=== PATIENT | male | born 1950 | race Asian ===

== ENCOUNTER 2017-06-04 11:09 | Day surgery (SDC) | payer BC, MEDICARE ==
[2017-06-03 14:19] VITALS: BMI 29.0
--- NOTE | 2017-06-04 15:31 | MRI ---
MRI PELVIS WITH AND WITHOUT IV CONTRAST: (PROSTATE) Date: 06/04/17 HISTORY: 67-year-old male with elevated PSA, which has risen further after prior biopsy. FINDINGS: The prostate gland measures 5.5 (trans) x 4.3 (AP) x 5.1 (CC) cm with a prostatic volume of 63 mL. There is a 12.0 mm focal area of decreased T2 signal in the transition zone of the right mid prostate gland with early enhancement and subsequent early washout on postcontrast images at the 7-8 o'clock position. Remainder of the prostate gland demonstrates changes of BPH. No capsular extension or invol vement of the neurovascular bundles or seminal vesicles are seen. No lymphadenopathy is seen. The bony structures are unremarkable. IMPRESSION: PI-RADS 4 - High (Clinical significant cancer is likely to be present.) This study was interpreted in consultation with Dr. Taj Kasper, who concurs. POS: OFF
== END 2017-06-04 15:30 | disposition home or self-care (01) ==
LOC: SDC/OP 11:09
PROVIDERS: ATTEND Urology
DX: N40.0 Benign prostatic hyperplasia without lower urinary tract symptoms (principal); R97.20 Elevated prostate specific antigen [PSA]
CPT/HCPCS: 72197

== ENCOUNTER 2017-07-30 18:46 | Emergency (ER) | payer BC, MEDICARE ==
[2017-07-30] MEDS ORDERED: Aspirin 325 MG TAB ONE (19:09)
[2017-07-30 19:17] LABS: #Basophils 0.1 thou/uL (0.0-0.2); #Eosinphils 0.4 thou/uL (0.0-0.7); #Lymphocytes 3.1 thou/uL (1.20-3.40); #Monocytes 0.6 thou/uL (0.11-0.59); #Neutrophils 5.6 thou/uL (1.40-6.50); %Basophils 0.6 % (0.0-1.0); %Eosinophils 4.1 % (0.0-10.0); %Lymphocytes 31.9 % (21.0-51.0); %Neutrophils 57.4 % (42.0-75.0); Hemoglobin 15.5 g/dL (14.0-18.0); Mean Corpuscular Hemoglobin 32.3 pg (27.0-31.0); Mean Corpuscular Volume 92.4 fl (80.0-94.0); Platelet Count 243 thou/uL (130-400); RBC Distribution Width 11.6 % (11.5-14.5); Red Blood Cell (RBC) Count 4.78 mill/uL (4.70-6.10); White Blood Cell (WBC) Count 9.8 thou/uL (4.8-10.8)
[2017-07-30 19:28] LABS: ALT (SGPT) 68 U/L (8-55); AST (SGOT) 53 U/L (5-34); Albumin 4.3 g/dL (3.4-4.8); Alkaline Phosphatase 83 U/L (40-150); Anion Gap 15 mmol/L (10-20); BUN (Urea Nitrogen) 18 mg/dL (8.4-25.7); Bilirubin, Total 0.9 mg/dL (0.2-1.2); Calc. Creatinine Clearance 0 mL/min (70-130); Calcium 9.7 mg/dL (7.8-10.44); Carbon Dioxide 24 mmol/L (23-31); Chloride 100 mmol/L (98-107); Estimated GFR-MDRD 62; Globulin 3.9 g/dL (2.4-3.5); Glucose 338 mg/dL (80-115); Potassium 4.4 mmol/L (3.5-5.1); Protein, Total 8.2 g/dL (5.8-8.1); Sodium 135 mmol/L (136-145)
[2017-07-30 19:32] LABS: CKMB 2.5 ng/mL (0-6.6); Troponin I Less than 0.010 ng/mL (< 0.028)
--- NOTE | 2017-07-30 20:16 | RAD ---
PORTABLE CHEST ONE VIEW 07/30/17 at 7:36 p.m. HISTORY: 67-year-old male with chest pain. FINDINGS: The heart size is normal. The lungs are well expanded without confluent areas of consolidation, pneum othorax or pleural effusions. There are degenerative changes in the acromioclavicular joints. IMPRESSION: No radiographic evidence of acute cardiopulmonary process. POS: [facility]
[2017-07-30 22:36] LABS: Troponin I Less than 0.010 ng/mL (< 0.028)
== END 2017-07-30 22:47 | disposition home or self-care (01) ==
LOC: ERS 18:46
DX: R07.2 Precordial pain (principal); E11.9 Type 2 diabetes mellitus without complications; Z79.84 Long term (current) use of oral hypoglycemic drugs; Z79.899 Other long term (current) drug therapy
CPT/HCPCS: 36415; 71045; 80053; 82553; 84484; 85025; 93005

== ENCOUNTER 2017-09-09 15:36 | Outpatient (CLI) | payer BC, MEDICARE ==
[2017-09-09 16:36] LABS: Hemoglobin 15.3 g/dL (14.0-18.0); Mean Corpuscular HGB CONC 34.8 g/dL (32.0-36.0); Mean Corpuscular Hemoglobin 32.8 pg (27.0-31.0); Mean Corpuscular Volume 94.2 fl (80.0-94.0); Platelet Count 232 thou/uL (130-400); RBC Distribution Width 11.8 % (11.5-14.5); Red Blood Cell (RBC) Count 4.67 mill/uL (4.70-6.10); White Blood Cell (WBC) Count 8.4 thou/uL (4.8-10.8)
[2017-09-09 16:43] LABS: INR-International Normal Ratio 1.1
[2017-09-09 16:44] LABS: PTT 31.6 SEC (22.9-36.1)
[2017-09-09 16:58] LABS: ALT (SGPT) 63 U/L (8-55); AST (SGOT) 45 U/L (5-34); Albumin 4.6 g/dL (3.4-4.8); Alkaline Phosphatase 73 U/L (40-150); Anion Gap 16 mmol/L (10-20); BUN (Urea Nitrogen) 17 mg/dL (8.4-25.7); Bilirubin, Total 0.9 mg/dL (0.2-1.2); Calc. Creatinine Clearance 0 mL/min (70-130); Carbon Dioxide 24 mmol/L (23-31); Chloride 104 mmol/L (98-107); Estimated GFR-MDRD Greater than 90; Globulin 3.4 g/dL (2.4-3.5); Glucose 88 mg/dL (80-115); Potassium 3.9 mmol/L (3.5-5.1); Sodium 140 mmol/L (136-145)
== END 2017-09-09 15:37 | disposition home or self-care (01) ==
LOC: LABBT 15:36
PROVIDERS: ATTEND Internal Medicine Cardiovascular Disease
DX: Z01.818 Encounter for other preprocedural examination (principal); R94.30 Abnormal result of cardiovascular function study, unspecified
CPT/HCPCS: 80053; 85027; 85610; 85730; 93005; 93010

== ENCOUNTER 2017-09-10 10:08 | Day surgery (SDC) | payer BC, MEDICARE ==
[2017-09-09 08:28] VITALS: BMI 29.2
[2017-09-10] MEDS ORDERED: Nitroglycerin 100MG/250ML BOT 250 ML ONE (11:34)
[2017-09-10] MEDS ORDERED: Heparin 10,000 UNITS/1 ML VIAL ONE (11:34)
[2017-09-10] MEDS ORDERED: Lidocaine 1% (PF) 30 ML VIAL ONE (11:34)
[2017-09-10] MEDS ORDERED: Verapamil 5 MG/2 ML VIAL ONE (11:34)
[2017-09-10 11:53] LABS: Cardiac Risk 4.7 (Less than 4.5)
[2017-09-10] MEDS ORDERED: Midazolam HCl 2 mg/2 ml Vial ONE (12:15)
[2017-09-10] MEDS ORDERED: Fentanyl 100 MCG/2 ML VIAL ONE (12:15)
[2017-09-10] MEDS ORDERED: Iopamidol 370 76% 100 ML VIAL ONE (15:55)
== END 2017-09-10 15:16 | disposition home or self-care (01) ==
LOC: CCL 10:08
PROVIDERS: ATTEND Internal Medicine Cardiovascular Disease
PROC: B2111ZZ Fluoroscopy of Multiple Coronary Arteries using Low Osmolar Contrast (ICD-10-PCS; principal; 2017-09-10)
PROC: 4A023N7 Measurement of Cardiac Sampling and Pressure, Left Heart, Percutaneous Approach (ICD-10-PCS; principal; 2017-09-10)
DX: I25.10 Atherosclerotic heart disease of native coronary artery without angina pectoris (principal); E11.9 Type 2 diabetes mellitus without complications; Z79.84 Long term (current) use of oral hypoglycemic drugs; Z79.82 Long term (current) use of aspirin; Z79.899 Other long term (current) drug therapy
CPT/HCPCS: 36416; 80061; 93458; 99153; C1769; J1644; J2001; J2250; J3010

== ENCOUNTER 2017-09-24 20:30 | Outpatient (CLI) | payer BC, MEDICARE | END 2017-09-24 20:31 | disposition home or self-care (01) | LOC: SLEEPLAB 20:30 | PROVIDERS: ATTEND Urology | DX: R94.39 Abnormal result of other cardiovascular function study (principal); I10 Essential (primary) hypertension; E11.9 Type 2 diabetes mellitus without complications; R06.83 Snoring; G47.10 Hypersomnia, unspecified | CPT/HCPCS: 95810 ==

== ENCOUNTER 2017-11-01 10:03 | Outpatient (CLI) | payer BC, MEDICARE ==
[2017-11-01 11:09] LABS: Hemoglobin 14.4 g/dL (14.0-18.0); Mean Corpuscular HGB CONC 34.8 g/dL (32.0-36.0); Mean Corpuscular Hemoglobin 32.5 pg (27.0-31.0); Mean Corpuscular Volume 93.4 fL (78.0-98.0); Mean Platelet Volume 7.3 fL (7.4-10.4); Platelet Count 239 thou/uL (130-400); RBC Distribution Width 11.9 % (11.5-14.5); Red Blood Cell (RBC) Count 4.43 mill/uL (4.70-6.10); White Blood Cell (WBC) Count 7.5 thou/uL (4.8-10.8)
[2017-11-01 11:21] LABS: INR-International Normal Ratio 1.1; Prothrombin Time 14.4 SEC (12.0-14.7)
[2017-11-01 11:22] LABS: PTT 31.8 SEC (22.9-36.1)
[2017-11-01 11:55] LABS: Anion Gap 15 mmol/L (10-20); BUN (Urea Nitrogen) 11 mg/dL (8.4-25.7); Calc. Creatinine Clearance 0 mL/min (70-130); Calcium 9.7 mg/dL (7.8-10.44); Carbon Dioxide 21 mmol/L (23-31); Chloride 107 mmol/L (98-107); Estimated GFR-MDRD Greater than 90; Glucose 130 mg/dL (80-115); Sodium 139 mmol/L (136-145)
[2017-11-01 11:56] LABS: Bilirubin Negative (Negative); Blood, Urine Small (Negative); Clarity CLEAR (Clear); Glucose, Urine (Dipstick) 500 mg/dL (Negative); Leukocyte Negative (Negative); Nitrite Negative (Negative); Protein, Urine (Dipstick) Negative (Neg-Trace); Specific Gravity, Urine 1.025 (1.002-1.036); pH, Urine 5.5 (5.0-9.0)
[2017-11-01 11:59] LABS: Bacteria/HPF None Seen HPF (None Seen); Hyaline Casts/LPF 0-3 HYALINE CAST LPF (0-3 Hyaline); Pathc Cast-AUWi Flag 0.29 (0-2.49); Squamous Epithelial None Seen HPF (0-3)
--- NOTE | 2017-11-01 22:39 | EKG ---
Test Reason : Blood Pressure : / mmHG Vent. Rate : 057 BPM Atrial Rate : 057 BPM P-R Int : 166 ms QRS Dur : 088 ms QT Int : 424 ms P-R-T Axes : 060 -02 008 degrees QTc Int : 412 ms Sinus bradycardia Minimal voltage criteria for LVH, may be normal variant Borderline ECG When compared with ECG of 09-SEP-2017 16:05, (Unconfirmed) No significant change was found Confirmed by Dulce GREY ([id number]) on 11/01/2017 10:38:41 PM Referred By: SOBEIDA Confirmed By:Dulce GREY
== END 2017-11-01 10:04 | disposition home or self-care (01) ==
LOC: LABBT 10:03
PROVIDERS: ATTEND Urology
DX: Z01.818 Encounter for other preprocedural examination (principal); N40.1 Benign prostatic hyperplasia with lower urinary tract symptoms
CPT/HCPCS: 80048; 81001; 85027; 85610; 85730; 86850; 86900; 86901; 87086; 93005; 93010

== ENCOUNTER 2017-11-04 10:00 | Observation (INO) | payer BC, MEDICARE ==
[2017-11-01 10:18] VITALS: BMI 29.2
[2017-11-04] MEDS ORDERED: Levofloxacin 500 mg/D5W 100 ml Premix Bag ONE (11:07)
[2017-11-04] MEDS ORDERED: Ondansetron HCl/PF 4 MG/2 ML Vial ONE (12:52)
[2017-11-04] MEDS ORDERED: Lidocaine 1% PF 5 ML VIAL ONE (12:52)
[2017-11-04] MEDS ORDERED: Dexamethasone 20 MG/5 ML VIAL ONE (12:52)
[2017-11-04] MEDS ORDERED: PHENYLEPHRINE-NS 100 MCG/ML 10 ML SYRINGE ONE (12:52)
[2017-11-04] MEDS ORDERED: PROPOFOL 200 MG/20 ML VIAL ONE (12:52)
[2017-11-04] MEDS ORDERED: Fentanyl 100 MCG/2 ML VIAL ONE ×2 (13:20→16:09)
[2017-11-04] MEDS ORDERED: B & O ONE (15:21)
[2017-11-04] MEDS ORDERED: diphenhydrAMINE 25 MG CAP PO PRN (15:24)
[2017-11-04] MEDS ORDERED: Bisacodyl 10 MG SUPP PR PRN (15:24)
[2017-11-04] MEDS ORDERED: Morphine 4 MG/ML VIAL SLOW IVP PRN (15:24)
[2017-11-04] MEDS ORDERED: Oxybutynin 5 MG TAB PO PRN (15:24)
[2017-11-04] MEDS ORDERED: hydrALAZINE 20 MG/ML VIAL SLOW IVP PRN (15:24)
[2017-11-04] MEDS ORDERED: Acetaminophen 500 MG TAB PO PRN (15:24)
[2017-11-04] MEDS ORDERED: Dextrose 50% Abboject 50 ML SYRINGE SLOW IVP PRN (15:24)
[2017-11-04] MEDS ORDERED: Dextrose 5% in Water 1,000 ML IV PRN (15:24)
[2017-11-04] MEDS ORDERED: Mag-Al 1200 mg/1200 mg/30 ML UDCUP PO PRN (15:24)
[2017-11-04] MEDS ORDERED: Ondansetron HCl/PF 4 MG/2 ML Vial IVP PRN (15:24)
[2017-11-04] MEDS ORDERED: Hyoscyamine Sulfate SL 0.125 mg Tablet SL PRN (15:24)
[2017-11-04] MEDS ORDERED: HumaLOG 300 UNITS/3 ML VIAL SC PRN (15:24)
[2017-11-04] MEDS ORDERED: traMADol HCl 50 MG TAB PO PRN (15:27)
[2017-11-04] MEDS ORDERED: Nitroglycerin 0.4 MG TAB (25 Tab Bottle) SL PRN (15:39)
[2017-11-04] MEDS ORDERED: Midazolam HCl 2 mg/2 ml Vial ONE (15:45)
[2017-11-04] MEDS ORDERED: HYDROcodone/Acetaminophen 7.5/325 mg Tablet PO PRN ×2 (18:37)
[2017-11-04] MEDS ORDERED: B & O 30 MG SUPP PR PRN (18:37)
[2017-11-04] MEDS ORDERED: B & O PR PRN (18:52)
[2017-11-04] MEDS: Docusate 100 MG CAP PO SCH (20:53)
[2017-11-04] MEDS: metFORMIN 500 MG TAB PO SCH (20:53)
[2017-11-04] MEDS: Glimepiride 4 MG TAB PO SCH (20:53)
[2017-11-04] MEDS ORDERED: Atorvastatin Calcium 20 MG TAB PO SCH (21:00)
[2017-11-05 04:45] LABS: #Basophils 0.1 thou/uL (0.0-0.2); #Lymphocytes 1.3 thou/uL (1.20-3.40); #Monocytes 0.5 thou/uL (0.11-0.59); #Neutrophils 9.6 thou/uL (1.40-6.50); %Basophils 0.4 % (0.0-1.0); %Eosinophils 0.1 % (0.0-10.0); %Lymphocytes 11.1 % (21.0-51.0); %Monocytes 4.6 % (0.0-10.0); %Neutrophils 83.8 % (42.0-75.0); Hemoglobin 14.2 g/dL (14.0-18.0); Mean Corpuscular Volume 94.3 fL (78.0-98.0); Mean Platelet Volume 7.8 fL (7.4-10.4); Platelet Count 210 thou/uL (130-400); RBC Distribution Width 11.5 % (11.5-14.5); Red Blood Cell (RBC) Count 4.29 mill/uL (4.70-6.10); White Blood Cell (WBC) Count 11.4 thou/uL (4.8-10.8)
[2017-11-05 05:04] LABS: Anion Gap 17 mmol/L (10-20); BUN (Urea Nitrogen) 14 mg/dL (8.4-25.7); Calc. Creatinine Clearance 80 mL/min (70-130); Calcium 8.7 mg/dL (7.8-10.44); Carbon Dioxide 19 mmol/L (23-31); Chloride 102 mmol/L (98-107); Estimated GFR-MDRD 67; Glucose 350 mg/dL (80-115); Potassium 4.3 mmol/L (3.5-5.1); Sodium 134 mmol/L (136-145)
[2017-11-05] MEDS: metFORMIN 500 MG TAB PO SCH (09:19)
[2017-11-05] MEDS: Docusate 100 MG CAP PO SCH (09:19)
[2017-11-05] MEDS: Glimepiride 4 MG TAB PO SCH (09:19)
[2017-11-05 11:52] VITALS: TEMP 97.7
--- NOTE | 2017-11-05 14:49 | PRG ---
DATE OF SERVICE: 11/05/2017 SUBJECTIVE: The patient states he is doing quite well. He had a lot of bladder spasms last night re quiring pain medication and antispasmodics. He states he was feeling better this morning. His gadiel ter was removed as his CBI was turned off in the a.m. and he was not noted to have overly significant hematuria. He denies any chest pain, shortness of breath or other problems otherwise. OBJECTIVE: VITAL SIGNS: Temperature 97.7, pulse 67, respirations 14, blood pressure 122/71, saturation 95% on r oom air. GENERAL: No apparent distress, communicative and alert. CARDIOVASCULAR: Regular rate and rhythm. ABDOMEN: Soft, nontender, nondistended. Positive bowel sounds. EXTREMITIES: No clubbing, cyanosis or edema. LABORATORY DATA: A full set of labs in the [facility] system, which I have reviewed. Of note, the pat ient's white count is 11.4, hemoglobin 14.2, creatinine is 1.1 with a blood sugar of 350. ASSESSMENT AND PLAN: A 67-year-old male with diabetes and benign prostatic hypertrophy with o bstruction, status post transurethral resection of the prostate postoperative day #1. He has undergo ne his catheter removal and is waiting void trial. We will ensure that he is able to adequately empt y his bladder properly. Due to the amount of antispasmodics, if he does have difficulty emptying his bladder, we will replace the catheter and send him home with the catheter. If he is able to void no rmally, then he can go home without a catheter. We will plan his follow up in approximately 2 weeks for a postop check. I have gone over his discharge instructions with him as well as his medications to take at home and he is understanding of all of them. The nurse will notify me regarding his voidi ng status and the catheter status will depend on how he voids.
[2017-11-05 15:48] VITALS: BP 124/69
--- NOTE | 2017-11-05 16:09 | OP ---
DATE OF PROCEDURE: 11/05/2017 SERVICE: Urology. SURGEON: Iggy Monroy M.D. PREOPERATIVE DIAGNOSIS: Benign prostatic hypertrophy with urinary obstruction. POSTOPERATIVE DIAGNOSIS: Benign prostatic hypertrophy with urinary obstruction. PROCEDURE PERFORMED: Transurethral resection of the prostate. INDICATIONS FOR PROCEDURE: Mr. Solis is a 67-year-old [place] male who has a long history of urinar y difficulties including overactive bladder, urgency, frequency, and weak stream. He has undergone a cystoscopy which demonstrated an obstructive median lobe. I have discussed TURP with him to allevia te the obstruction which may help with the overactive bladder symptoms. The patient has understood t he risks and benefits of surgery and has agreed to proceed forward. DESCRIPTION OF PROCEDURE: After identification of armband and verification of consent, the patient w as brought back to the operating room where he underwent general anesthesia with LMA. He was then pl aced in dorsal lithotomy position and prepped and draped in usual sterile fashion. After appropriate timeout, a lubricated 24-Israeli resectoscope sheath was placed through the urethra with ease up to t he bladder. The visual obturator was then removed and switched out for the bipolar gyrus prostate lo op. Both ureters were identified far away from the bladder neck. I did not think that needed markin g as they were well away. Resection was started with the median lobe and resected completely. The p rostate was then circumferentially resected from the bladder neck to the verumontanum until we were c lose, but not to the capsule. Relaxing incisions were done at 5 and 7 o'clock to further open up the bladder neck and the intervening tissue removed. Upon completion, the prostate chips were evacuated using [facility] evacuator until there were no chips remaining. Meticulous hemostasis was performed thro ughout the prostatic fossa to ensure all bleeding had stopped. Once there was good hemostasis, the p rostate appeared wide open. The resectoscope was removed and a 22-Israeli three-way Schwartz catheter wa s inserted with ease into the bladder with 30 mL of sterile water into the balloon. CBI was initiate d and the catheter affixed with a StatLock to the patient's leg. He was then taken out of lithotomy had a B&O suppository inserted into his rectum. He was awakened and taken to PACU for recovery in st able condition. COMPLICATIONS: None. ESTIMATED BLOOD LOSS: Minimal. RETAINED TUBES AND DRAINS: A 22-Israeli 3-way Schwartz catheter on CBI. SPECIMENS: Prostate chips. DISPOSITION: The patient will be kept in observation in the hospital for CBI and monitoring. Raad irving plan for a void trial tomorrow and discharge home pending results of the void trial.
== END 2017-11-05 16:15 | disposition home or self-care (01) ==
LOC: SDC 10:00 → SJJU 15:24
PROVIDERS: ADMIT Urology; ATTEND Urology
PROC: 0VT08ZZ Resection of Prostate, Via Natural or Artificial Opening Endoscopic (ICD-10-PCS; principal; 2017-11-05)
DX: N40.1 Benign prostatic hyperplasia with lower urinary tract symptoms (principal); N13.8 Other obstructive and reflux uropathy; R35.0 Frequency of micturition; R39.15 Urgency of urination; R39.12 Poor urinary stream; R97.20 Elevated prostate specific antigen [PSA]; E11.9 Type 2 diabetes mellitus without complications; Z79.82 Long term (current) use of aspirin; Z79.84 Long term (current) use of oral hypoglycemic drugs; Z79.899 Other long term (current) drug therapy
CPT/HCPCS: 36415; 36416; 80048; 85025; 88305; 96365; 96374; 96375; 96376; G0378; J1100; J1956; J2001; J2250; J2270; J2405; J2704; J3010

== ENCOUNTER 2021-05-15 09:55 | Outpatient (CLI) | payer BC, MEDICARE | END 2021-05-15 09:56 | disposition home or self-care (01) | LOC: BICRAD 09:55 | PROVIDERS: ATTEND Family Medicine | DX: M47.22 Other spondylosis with radiculopathy, cervical region (principal); R05.9 Cough, unspecified | CPT/HCPCS: 71046; 72040 ==

== ENCOUNTER 2021-09-11 15:53 | Outpatient (CLI) | payer BC, MEDICARE | END 2021-09-11 15:54 | disposition home or self-care (01) | LOC: LABBT 15:53 | PROVIDERS: ATTEND Family Medicine | DX: Z20.822 Contact with and (suspected) exposure to COVID-19 (principal) | CPT/HCPCS: U0003; U0005 ==

== ENCOUNTER 2021-09-15 09:43 | Day surgery (SDC) | payer BC, MEDICARE ==
[2021-09-11 14:20] VITALS: BMI 27.7
[2021-09-15] MEDS ORDERED: PROPOFOL 200 MG/20 ML VIAL ONE (11:00)
[2021-09-15] MEDS ORDERED: Ondansetron PF 4 MG/2 ML Vial ONE (11:00)
[2021-09-15] MEDS ORDERED: Dexamethasone 20 MG/5 ML VIAL ONE (11:00)
[2021-09-15] MEDS ORDERED: Lidocaine 1% PF 5 ML VIAL ONE (11:00)
== END 2021-09-15 12:50 | disposition home or self-care (01) ==
LOC: MRI 09:43
PROVIDERS: ATTEND Family Medicine
DX: H54.61 Unqualified visual loss, right eye, normal vision left eye (principal)
CPT/HCPCS: 70551; J1100; J2405; J2704

== ENCOUNTER 2023-04-14 09:54 | Outpatient (CLI) | payer BC, MEDICARE ==
[2023-04-14 10:58] LABS: Bilirubin Neg (Negative); Blood, Urine Negative (Negative); Clarity Clear (Clear); Glucose, Urine (Dipstick) 50 mg/dL (Negative); Ketone, Urine 5 mg/dL (Negative); Leukocyte Negative (Negative); Nitrite Negative (Negative); Protein, Urine (Dipstick) 30 mg/dl (Neg-Trace); Specific Gravity, Urine 1.025 (1.005-1.030)
[2023-04-14 11:00] LABS: Hematocrit 43.3 % (38.8-50.0); Hemoglobin 14.5 g/dL (13.5-17.5); Mean Corpuscular HGB CONC 33.5 g/dL (32.0-36.0); Mean Corpuscular Hemoglobin 30.9 pg (27.0-33.0); Mean Corpuscular Volume 92.3 fl (81.2-95.1); Mean Platelet Volume 10.6 fl (7.4-10.4); Platelet Count 248 10x3/uL (150-450); RBC Distribution Width 12.2 % (11.5-14.5); Red Blood Cell (RBC) Count 4.69 10x6/uL (4.32-5.72); White Blood Cell (WBC) Count 7.7 10x3/uL (3.5-10.5)
[2023-04-14 11:11] LABS: Prothrombin Time 11.1 sec (9.5-12.1)
[2023-04-14 11:12] LABS: Anion Gap 13 mmol/L (10-20); BUN (Urea Nitrogen) 13 mg/dL (8.4-25.7); Calc. Creatinine Clearance 0 mL/min (70-130); Calcium 8.7 mg/dL (7.8-10.44); Carbon Dioxide 24 mmol/L (23-31); Chloride 106 mmol/L (98-107); Estimated GFR 89; Glucose 202 mg/dL (83-110); Potassium 3.9 mmol/L (3.5-5.1); Sodium 139 mmol/L (136-145)
[2023-04-14 11:26] LABS: Bacteria/HPF Rare-Few HPF (None Seen); RBC/HPF 0-3 HPF (0-3); WBC/HPF 0-3 HPF (0-3)
[2023-04-14 11:27] LABS: Squamous Epithelial 0-3 HPF (0-3)
== END 2023-04-14 09:55 | disposition home or self-care (01) ==
LOC: LABBT 09:54
PROVIDERS: ATTEND Urology
DX: Z01.818 Encounter for other preprocedural examination (principal); N40.1 Benign prostatic hyperplasia with lower urinary tract symptoms; N20.0 Calculus of kidney; R35.1 Nocturia; R97.20 Elevated prostate specific antigen [PSA]; N32.81 Overactive bladder; R35.0 Frequency of micturition
CPT/HCPCS: 80048; 81001; 85027; 85610; 85730; 87086; 93005; 93010

== ENCOUNTER 2023-04-23 07:36 | Day surgery (SDC) | payer BC, MEDICARE ==
[2023-04-14 10:15] VITALS: BMI 27.1
[2023-04-23] MEDS ORDERED: LevoFLOXacin D5W 500 mg (100 mL) BAG ONE (08:27)
[2023-04-23] MEDS ORDERED: Ondansetron PF 4 MG/2 ML Vial ONE (09:23)
[2023-04-23] MEDS ORDERED: Dexamethasone 4 mg/ml Vial ONE (09:23)
[2023-04-23] MEDS ORDERED: Lidocaine 2% PF 5 ML VIAL ONE (09:23)
[2023-04-23] MEDS ORDERED: PROPOFOL 20 ML ONE (09:24)
[2023-04-23] MEDS ORDERED: Midazolam HCl 2 mg/2 ml Vial ONE (09:24)
[2023-04-23] MEDS ORDERED: fentaNYL PF 100 MCG/2 ML SYRINGE ONE ×3 (09:24→12:33)
[2023-04-23] MEDS ORDERED: Rocuronium Bromide 10 MG/ML (10ML VIAL) ONE (09:40)
[2023-04-23] MEDS ORDERED: HYDROmorphone 2 MG/ML VIAL SLOW IVP PRN (10:06)
[2023-04-23] MEDS ORDERED: Ondansetron HCl/PF 4 MG/2 ML Vial IVP PRN (10:06)
[2023-04-23] MEDS ORDERED: Promethazine HCl 25 MG/ML VIAL IM PRN (10:06)
[2023-04-23] MEDS ORDERED: Iopamidol 15 ML ONE (10:26)
[2023-04-23] MEDS ORDERED: SUGAMMADEX SODIUM 200 MG/2 ML VIAL ONE (10:50)
[2023-04-23] MEDS ORDERED: Phenazopyridine HCl 100 MG TAB ONE (12:33)
[2023-04-23] MEDS ORDERED: Oxybutynin 5 MG TAB ONE (12:33)
[2023-04-23] MEDS ORDERED: Morphine 2 MG/ML VIAL ONE (13:20)
[2023-04-23] MEDS ORDERED: HYDROcodone/Acetaminophen 5/325 mg Tablet ONE (13:32)
[2023-04-23] MEDS ORDERED: Hyoscyamine SL 0.125 MG TAB ONE (13:52)
== END 2023-04-23 15:25 | disposition home or self-care (01) ==
LOC: SDC 07:36
PROVIDERS: ATTEND Urology
PROC: 0T778DZ Dilation of Left Ureter with Intraluminal Device, Via Natural or Artificial Opening Endoscopic (ICD-10-PCS; principal; 2023-04-23)
PROC: 0TC78ZZ Extirpation of Matter from Left Ureter, Via Natural or Artificial Opening Endoscopic (ICD-10-PCS; principal; 2023-04-23)
PROC: 0TC18ZZ Extirpation of Matter from Left Kidney, Via Natural or Artificial Opening Endoscopic (ICD-10-PCS; principal; 2023-04-23)
DX: N20.2 Calculus of kidney with calculus of ureter (principal); E11.9 Type 2 diabetes mellitus without complications; N40.0 Benign prostatic hyperplasia without lower urinary tract symptoms
CPT/HCPCS: 82365; 88300; C1713; C1747; C1769; C2617; J1100; J1956; J2001; J2250; J2272; J2405; J2704; Q9967